=== PATIENT | female | born 2000 | race Caucasian/White ===

== ENCOUNTER 2020-08-05 07:06 | Emergency (ER) | payer SELFPAY ==
[~2020-08-05] VITALS: Ht 165.1 cm; Wt 65.3 kg
--- NOTE | 2020-08-05 07:50 | NUR ---
PT DIZZY IN CLINICALS THIS AM W LOW BP. DENIES N/V A&OX4, DENIES DIZZINES. HAD BANANNA AND A RICE THIS AM. ORTHOS DONE, CARD MONITOR IN PLACE
[2020-08-05] MEDS ORDERED: KETOROLAC 30 MG/1 ML ONE (07:56)
[2020-08-05] MEDS ORDERED: ONDANSETRON 2MG/ML, 2ML ONE (07:56)
[2020-08-05] MEDS ORDERED: KETOROLAC 30 MG/1 ML IVPush ONE (08:00)
[2020-08-05] MEDS ORDERED: ONDANSETRON 2MG/ML, 2ML IVPush ONE (08:00)
[2020-08-05] MEDS ORDERED: SODIUM CHLORIDE 0.9% 1,000ML IVBOLUS ONE (08:00)
--- NOTE | 2020-08-05 08:10 | NUR ---
IVF, LABS, MEDICATED FOR SARAVIA.
[2020-08-05 08:12] LABS: BASOPHILS % (AUTO) 1 % (0-1); EOSINOPHILS % (AUTO) 5 % (1-7); LYMPHOCYTES % (AUTO) 44 % (22-44); MEAN CORPUSCULAR HEMOGLOBIN 29.8 pg (27.0-34.8); MEAN CORPUSCULAR HGB CONC 33.3 g/dL (32.4-35.8); MEAN PLATELET VOLUME 7.7 fL (7.4-10.4); MONOCYTES % (AUTO) 8 % (2-9); NEUTROPHILS % (AUTO) 42 % (42-75); PLATELET COUNT 242 x10^3/uL (130-400); RED BLOOD COUNT 4.29 x10^6/uL (3.82-5.3); RED CELL DISTRIBUTION WIDTH 13.9 % (9.6-15.2)
[2020-08-05 08:14] LABS: MD NO
[2020-08-05 08:24] LABS: ALBUMIN 3.6 g/dL (3.4-5.0); ANION GAP 5 mmol/L (5-15); CALCIUM 8.8 mg/dL (8.5-10.1); CHLORIDE 105 mmol/L (98-107)
[2020-08-05 08:31] LABS: CREATININE 0.87 mg/dL (0.55-1.02)
[2020-08-05 08:49] LABS: MICROSCOPIC AUTO
--- NOTE | 2020-08-05 09:04 | NUR ---
GIVEN FOOD TRAY, GLUTEN FREE.
[2020-08-05 09:13] VITALS: BP 104/62
--- NOTE | 2020-08-05 09:14 | NUR ---
Patientgiven discharge instructions and they have confirmed that they understand the instructions. Patient ambulatory with steady gait.
== END 2020-08-05 09:17 | disposition home or self-care (01) ==
LOC: ED 07:36
DX: R55 Syncope and collapse (principal); R11.0 Nausea; R51.9 Headache, unspecified
CPT/HCPCS: 36415; 80048; 81001; 82040; 84703; 85025; 87086; 93005; 96361; 96374; 96375; 99284; J1885; J2405; J7030